=== PATIENT | female | born 1995 | race African-American/Black ===

== ENCOUNTER 2019-11-30 10:04 | Inpatient (IN) ==
[2019-11-30] MEDS ORDERED: FAMOTIDINE 20 MG/2 ML VIAL IV ONE (10:42)
[2019-11-30] MEDS ORDERED: CITRIC ACID/SODIUM CITRATE 30 ML UDCUP PO ONE (10:42)
[2019-11-30] MEDS ORDERED: ceFAZolin 2,000 MG in PREMIX 1 EACH IV ONE (10:42)
[2019-11-30] MEDS ORDERED: OXYTOCIN 10 UNIT/ML VIAL IM ONE (10:44)
[2019-11-30] MEDS ORDERED: OXYTOCIN/LR 30 UNIT/1,000 ML BAG IV ONE (10:44)
[2019-11-30 11:30] LABS: Basophils # 0.1 10*3/uL (0.0-0.2); Basophils % 0.9 % (0.0-0.8); Eosinophils # 0.1 10*3/uL (0.0-0.87); Eosinophils % 1.2 % (0.00-10.9); Hematocrit 33.1 VOL% (35.7-47.0); Hemoglobin 10.6 GM/DL (12.0-16.0); Immature Granulocytes % 0.4 %; Immature Granulocytes Absolute 0.02 #; Lymphocytes # 2.3 10*3/uL (1.4-4.0); Mean Corpuscular Volume 93.8 FL (87-102); Mean Platelet Volume 10.3 FL (9.6-12.0); Monocytes % 7.1 % (1.7-12.7); Neutrophils % 50.4 % (38.7-73.9); Platelet Count 232 T/CUMM (130-400); Red Blood Count 3.53 MC/CUMM (3.8-5.5); White Blood Count 5.6 T/CUMM (4-12)
[2019-11-30 11:54] LABS: Albumin 2.1 G/DL (3.4-5.0); Bilirubin,Total 0.6 MG/DL (0.2-1.0); Osmolality,Calculated 271.7 MOS/KG (273-304); Total Protein 6.5 G/DL (6.4-8.3)
[2019-11-30] MEDS ORDERED: BUPIVACAINE SPINAL 0.75% 2 ML AMP SPINAL ONE (11:59)
[2019-11-30] MEDS ORDERED: ROPIVACAINE 0.5% 30 ML VIAL ONE (12:00)
[2019-11-30] MEDS ORDERED: DEXAMETHASONE 4 MG/1 ML VIAL ONE (12:00)
[2019-11-30] MEDS ORDERED: MORPHINE 10 MG/10 ML VIAL ONE (12:01)
[2019-11-30] MEDS ORDERED: ONDANSETRON 4 MG/2 ML VIAL ONE (12:01)
[2019-11-30] MEDS: LACTATED RINGERS 1,000 ML IV SCH ×2 (12:07→12:08)
[2019-11-30] MEDS ORDERED: GLUCAGON 1 MG VIAL IM PRN ×3 (13:22→16:45)
[2019-11-30] MEDS ORDERED: DEXTROSE 50% 25 GM/50 ML VIAL IV PRN ×3 (13:22→16:45)
[2019-11-30 13:25] LABS: Cord Arterial Blood HCO3 18.9 MMOL/L
[2019-11-30 13:26] LABS: Cord Venous Blood HCO3 20.9 MMOL/L; Cord Venous Blood PCO2 41.4 MMHG; Cord Venous Blood PO2 29.3 MMHG
[2019-11-30 13:28] LABS: Apearance,Urine CLEAR (Clear); Bacteria,Urine Occasional /HPF (Few); Bilirubin,Urine Negative (Negative); Blood, Urine Small mg/dL (Negative); Glucose,Urine (UA) Negative (Negative); Ketones,Urine 5 mg/dL (Negative); Nitrite,Urine Negative (Negative); Protein,Urine 30 MG/DL; RBC,Urine 1 /HPF (0-4); Squamous Epithelial Cell,Urine Occasional /HPF (0-10); Urine Color Straw (Yellow); Urine Specific Gravity 1.003 (1.001-1.035); Urine Urobilinogen < 2.0 EU/DL (0.2-1.0); WBC,Urine <1 /HPF (0-6)
[2019-11-30] MEDS ORDERED: DEXTROSE 10% 250 ML BAG IV PRN ×2 (13:30→16:51)
[2019-11-30] MEDS ORDERED: RHO(D) IMMUNE GLOBULIN 300 MCG SYRINGE IM ONE (13:45)
[2019-11-30] MEDS ORDERED: OXYTOCIN/LR 20 UNIT/1,000 ML BAG IV ONE (13:45)
[2019-11-30] MEDS ORDERED: ACETAMINOPHEN 325 MG TABLET PO PRN (13:45)
[2019-11-30] MEDS ORDERED: LACTATED RINGERS 1,000 ML IV SCH (14:00)
[2019-11-30] MEDS ORDERED: LACTATED RINGERS 1,000 ML IV ONE (14:03)
[2019-11-30] MEDS ORDERED: ALBUMIN 5% 12.5 GM/250 ML VIAL IV ONE (14:03)
[2019-11-30] MEDS ORDERED: PHENYLEPHRINE 1 MG/10 ML SYRINGE IV ONE (14:04)
[2019-11-30] MEDS: ONDANSETRON 4 MG/2 ML VIAL IV PRN ×2 (16:30→20:30)
[2019-11-30] MEDS ORDERED: INSULIN REGULAR 100 UNIT/ML SUBCUT SCH (18:00)
[2019-11-30] MEDS: ceFAZolin 1,000 MG in SYRINGE 1 EACH IV SCH (21:03)
[2019-11-30] MEDS: DOCUSATE SODIUM 100 MG CAPSULE PO SCH (21:04)
[2019-11-30 21:47] LABS: Basophils % 0.1 % (0.0-0.8); Hematocrit 33.8 VOL% (35.7-47.0); Immature Granulocytes % 0.4 %; Immature Granulocytes Absolute 0.05 #; Lymphocytes # 1.1 10*3/uL (1.4-4.0); Lymphocytes % 8.4 % (21.3-54.2); Mean Corpuscular HGB Conc 32.5 GM/DL (32-36); Mean Corpuscular Volume 91.1 FL (87-102); Neutrophils % 87.1 % (38.7-73.9); Platelet Count 216 T/CUMM (130-400); Red Blood Count 3.71 MC/CUMM (3.8-5.5); Red Cell Distribution Width 13.7 % (9.3-17.3)
[2019-11-30 21:50] LABS: White Blood Count 12.8 T/CUMM (4-12)
[2019-12-01] MEDS: ceFAZolin 1,000 MG in SYRINGE 1 EACH IV SCH (05:46)
[2019-12-01 06:37] LABS: Basophils % 0.3 % (0.0-0.8); Eosinophils % 0.1 % (0.00-10.9); Hematocrit 30.6 VOL% (35.7-47.0); Hemoglobin 9.9 GM/DL (12.0-16.0); Immature Granulocytes % 0.5 %; Immature Granulocytes Absolute 0.06 #; Lymphocytes # 2.1 10*3/uL (1.4-4.0); Lymphocytes % 16.1 % (21.3-54.2); Mean Corpuscular HGB Conc 32.4 GM/DL (32-36); Mean Corpuscular Volume 92.2 FL (87-102); Mean Platelet Volume 10.4 FL (9.6-12.0); Monocytes % 7.2 % (1.7-12.7); Neutrophils % 75.8 % (38.7-73.9); Platelet Count 203 T/CUMM (130-400); Red Blood Count 3.32 MC/CUMM (3.8-5.5); Red Cell Distribution Width 13.7 % (9.3-17.3); White Blood Count 12.8 T/CUMM (4-12)
[2019-12-01] MEDS: MAGNESIUM HYDROXIDE SUSP 30 ML UDCUP PO PRN (08:19)
[2019-12-01] MEDS: MULTIVITAMIN (PRENATAL) TABLET PO SCH (08:19)
[2019-12-01] MEDS: DOCUSATE SODIUM 100 MG CAPSULE PO SCH ×2 (08:19→20:32)
[2019-12-01] MEDS: SIMETHICONE CHEW 80 MG TABLET PO PRN (08:19)
[2019-12-01] MEDS: METOCLOPRAMIDE 10 MG TABLET PO SCH ×2 (08:19→16:10)
[2019-12-01] MEDS: IBUPROFEN 800 MG TABLET PO PRN (17:16)
[2019-12-02] MEDS: METOCLOPRAMIDE 10 MG TABLET PO SCH ×2 (00:49→07:49)
[2019-12-02] MEDS: IBUPROFEN 800 MG TABLET PO PRN (07:47)
[2019-12-02] MEDS: MULTIVITAMIN (PRENATAL) TABLET PO SCH ×2 (07:49→15:49)
[2019-12-02] MEDS: MAGNESIUM HYDROXIDE SUSP 30 ML UDCUP PO PRN (07:50)
[2019-12-02] MEDS: SIMETHICONE CHEW 80 MG TABLET PO PRN (07:50)
[2019-12-02] MEDS: DOCUSATE SODIUM 100 MG CAPSULE PO SCH (07:50)
[2019-12-02] MEDS ORDERED: INFLUENZA VIRUS VACCINE 0.5 ML SYRINGE IM ONE (08:45)
[2019-12-02 11:23] VITALS: BP 120/74
== END 2019-12-02 16:05 | disposition home or self-care (01) | DRG 540 ==
LOC: N.LD 10:04 → N.OB 16:06
PROVIDERS: ADMIT Obstetrics & Gynecology; ATTEND Obstetrics & Gynecology
PROC: LDCSECT (ICD-10-PCS; 2019-11-30 12:15)